=== PATIENT | female | born 1950 | race Caucasian/White ===

== ENCOUNTER 2022-11-05 10:22 | Emergency (ER) | payer MEDICARE ==
[~2022-11-05] VITALS: Ht 152.4 cm; Wt 68.0 kg
[2022-11-05] MEDS ORDERED: ONDANSETRON ODT4 MG PO (11:07)
[2022-11-05] MEDS ORDERED: AZITHROMYCIN250 MG PO (11:07)
[2022-11-05] MEDS ORDERED: VENTOLIN HFA18 GM INH (11:08)
[2022-11-05] MEDS ORDERED: BENZONATATE200 MG PO (11:09)
== END 2022-11-05 11:25 | disposition home or self-care (01) ==
LOC: ER 10:30
DX: R09.89 Other specified symptoms and signs involving the circulatory and respiratory systems (principal); B34.9 Viral infection, unspecified; J32.9 Chronic sinusitis, unspecified; J30.81 Allergic rhinitis due to animal (cat) (dog) hair and dander; I10 Essential (primary) hypertension; E78.5 Hyperlipidemia, unspecified; I25.10 Atherosclerotic heart disease of native coronary artery without angina pectoris; K21.9 Gastro-esophageal reflux disease without esophagitis; N28.9 Disorder of kidney and ureter, unspecified; Z87.19 Personal history of other diseases of the digestive system; Z95.1 Presence of aortocoronary bypass graft
CPT/HCPCS: 99282